=== PATIENT | female | born 1980 ===

== ENCOUNTER 2018-12-15 09:23 | Emergency (ER) | payer OTHER ==
[2018-12-15 09:27] VITALS: BMI 23.3
[2018-12-15 09:29] VITALS: BP 149/75; PULSE 89; RESP 18; TEMP 97.5; O2SAT 99
[2018-12-15 10:40] LABS: BASO % 0.8 % (0.0-2.0); EOS # 0.1 K/uL (0.0-0.7); EOS % 1.3 % (0.0-4.0); HEMOGLOBIN 13.1 g/dL (12.0-16.0); LYMPH # 2.4 K/uL (1.0-4.3); LYMPH % 45.6 % (20.0-40.0); MEAN CELL VOLUME 88.5 fl (81.0-99.0); MEAN CORPUSCULAR HEMOGLOBIN 30.1 pg (27.0-31.0); MEAN PLATELET VOLUME 8.5 fl (7.2-11.7); MONO # 0.3 K/uL (0.0-0.8); MONO % 6.6 % (0.0-10.0); NEUT # 2.4 K/uL (1.8-7.0); NEUT % 45.7 % (50.0-75.0); NRBC % 0.1 % (0.0-0.0); RBC 4.35 Mil/uL (3.80-5.20); WHITE BLOOD COUNT 5.2 K/uL (4.8-10.8)
[2018-12-15 10:48] LABS: INR 0.9; PROTHROMBIN TIME 10.4 Seconds (9.8-13.1)
[2018-12-15 10:49] LABS: ALB/GLOB RATIO 1.3 (1.0-2.1); ALBUMIN 4.7 g/dL (3.5-5.0); ALT/SGPT 28 U/L (9-52); AST/SGOT 25 U/L (14-36); BLOOD UREA NITROGEN 9 mg/dl (7-17); CALCIUM 9.8 mg/dL (8.4-10.2); GFR NON-AFRICAN AMERICAN > 60
--- NOTE | 2018-12-15 11:21 | RAD ---
Date of service: 12/15/2018 HISTORY: chest pain/ r/o infiltrate COMPARISON: No prior. TECHNIQUE: Chest PA and lateral views FINDINGS: LUNGS: No infiltrate. Calcified granuloma at lateral right lung base. PLEURA: No significant pleural effusion identified. No pneumothorax apparent. CARDIOVASCULAR: No aortic atherosclerotic calcification present. Normal cardiac size. No pulmonary vascular congestion. OSSEOUS STRUCTURES: No significant abnormalities. VISUALIZED UPPER ABDOMEN: Normal. OTHER FINDINGS: None. IMPRESSION: No active disease.
--- NOTE | 2018-12-15 14:12 | ED PDOC ---
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 Denies family history of breast CA. Past Medical History Reviewed: Historical Data, Nursing Documentation, Vital Signs Vital Signs: Last Vital Signs Temp 97.5 F L 12/15/18 09:27 Pulse 89 12/15/18 09:27 Resp 18 12/15/18 09:27 BP 149/75 12/15/18 09:27 Pulse Ox 99 12/15/18 09:27 - Medical History PMH: Hypothyroidism Denies: Chronic Kidney Disease - Surgical History Surgical History: No Surg Hx - Family History Family History: States: No Known Family Hx - Immunization History Hx Tetanus Toxoid Vaccination: Yes Hx Influenza Vaccination: Yes Hx Pneumococcal Vaccination: Yes - Home Medications Home Medications: Ambulatory Orders Medication Instructions Recorded Ibuprofen [Motrin Tab] 400 mg PO Q6 PRN #10 tab 12/15/18 - Allergies Allergies/Adverse Reactions: Allergies Allergy/AdvReac Type Severity Reaction Status Date / Time No Known Allergies Allergy Verified 12/15/18 10:09 Review of Systems ROS Statement: Except As Marked, All Systems Reviewed And Found Negative Cardiovascular: Positive for: Other (breast pain). Negative for: Chest Pain Skin: Negative for: Other (skin changes, nipple discharge) Neurological: Negative for: Dizziness Physical Exam - Reviewed Nursing Documentation Reviewed: Yes Vital Signs Reviewed: Yes - Physical Exam Appears: Positive for: Non-toxic, No Acute Distress Head Exam: Positive for: ATRAUMATIC, NORMAL INSPECTION, NORMOCEPHALIC Skin: Positive for: Normal Color Eye Exam: Positive for: Normal appearance Neck: Positive for: Supple Cardiovascular/Chest: Positive for: Regular Rate, Rhythm, Chest Non Tender, Other (breast exam done with GRABIEL monge as t rail turner; no nipple discharge, mass, no skin changes noted on breast. non-tender) Respiratory: Positive for: Normal Breath Sounds. Negative for: Respiratory Distress Extremity: Positive for: Normal ROM. Negative for: Tenderness, Deformity Neurological/Psych: Positive for: Awake, Alert - Laboratory Results Result Diagrams: 12/15/18 10:18 12/15/18 10:18 Lab Results: PT 10.4 Seconds (9.8-13.1) 12/15/18 10:18 INR 0.9 12/15/18 10:18 APTT 32.0 Seconds (25.6-37.1) 12/15/18 10:18 Troponin I < 0.0120 ng/mL (0.00-0.120) 12/15/18 10:18 Total Bilirubin 0.3 mg/dl (0.2-1.3) 12/15/18 10:18 AST 25 U/L (14-36) 12/15/18 10:18 ALT 28 U/L (9-52) 12/15/18 10:18 Alkaline Phosphatase 36 U/L (38-126) L 12/15/18 10:18 Total Protein 8.4 G/DL (6.3-8.2) H 12/15/18 10:18 Albumin 4.7 g/dL (3.5-5.0) 12/15/18 10:18 Globulin 3.7 gm/dL (2.2-3.9) 12/15/18 10:18 Albumin/Globulin Ratio 1.3 (1.0-2.1) 12/15/18 10:18 - ECG O2 Sat by Pulse Oximetry: 99 (RA) Pulse Ox Interpretation: Normal Medical Decision Making Medical Decision Making: Labs, CXR ordered 1300 labs, EKG and CXR all reviewed, with no clinically significant abnormalities. Patient given referral to women[facility] clinic for mammogram and other workup. Scribe Attestation: Documented by Jocelyn Oliver, acting as a scribe for Bennett Duncan DO Provider Scribe Attestation: All medical record entries made by the Scribe were at my direction and personally dictated by me. I have reviewed the chart and agree that the record accurately reflects my personal performance of the history, physical exam, medical decision making, and the department course for this patient. I have also personally directed, reviewed, and agree with the discharge instructions and disposition. Disposition - Clinical Impression Clinical Impression: Breast pain - Disposition Referrals: [facility] [Outside] Disposition: Routine/Home Disposition Time: 13:00 Condition: STABLE Additional Instructions: Followup with [facility] for possible further testing/ mammogram scheduling. Return to ER for any worse or new symptoms. Seguimiento con [facility] para posibles exmenes adicionales / programacin de mamografas. Regrese a la jaspreet de emergencias para aristides si hay sntomas peores o nuevos. Prescriptions: Ibuprofen [Motrin Tab] 400 mg PO Q6 PRN #10 tab PRN Reason: Pain, Moderate (4-7) Instructions: Mastalgia, Chest Pain, Common Breast Problems Forms: [facility] (French) Print Language: [place]
--- NOTE | 2018-12-18 14:02 | CARD ---
APPROVED REPORT Date of service: 12/15/2018 EKG Measurement Heart [id number] <Conclusion> Normal sinus rhythm Normal ECG
== END 2018-12-15 12:57 | disposition home or self-care (01) ==
LOC: H.ER 09:23
DX: N64.4 Mastodynia (principal); E03.9 Hypothyroidism, unspecified